=== PATIENT | female | born 1940 | race Caucasian/White ===

== ENCOUNTER → 2016-12-12 | Outpatient (CLI) | payer OTHER | LOC: FIMAGING 07:44 | PROVIDERS: ATTEND Family Medicine | DX: Z12.31 Encounter for screening mammogram for malignant neoplasm of breast (principal) | CPT/HCPCS: G0202 ==

== ENCOUNTER → 2017-12-13 | Outpatient (CLI) | payer OTHER | LOC: FIMAGING 07:47 | PROVIDERS: ATTEND Family Medicine | DX: Z12.31 Encounter for screening mammogram for malignant neoplasm of breast (principal) ==

== ENCOUNTER 2018-03-25 14:16 | Inpatient (IN) | payer OTHER ==
--- NOTE | 2018-03-25 14:36 | EDPHY ---
H & P Time Seen by Provider: 03/25/18 14:39 Constitutional: Initial Vital Signs Temperature (C) 37.0 C 03/25/18 14:37 Heart Rate 68 03/25/18 14:37 Respiratory Rate 16 03/25/18 14:37 Blood Pressure 180/77 H 03/25/18 14:37 O2 Sat (%) 91 L 03/25/18 14:37 O2 Delivery Mode Room Air Allergies/Adverse Reactions: latex Allergy (Verified 03/25/18 14:37) Home Medications: Medication Instructions Recorded Atorvastatin Calcium 03/25/18 Benazepril/Hydrochlorothiazide 03/25/18 Latanoprost 03/25/18 Medical Decision Making - Diagnostics Imaging Results: Imaging Impressions Abdomen Ultrasound 03/25/18 14:45 Impression: Cholelithiasis without evidence for cholecystitis. Results called and discussed with Cole Cunningham MD on March 25, 2018 at 1524 hours. Imaging: Discussed imaging studies w/ full service supervisor Radiologist, I viewed and interpreted images myself ED Course/Re-evaluation: CHIEF COMPLAINT: Left abdominal pain HISTORY OF PRESENT ILLNESS: The patient is a 77 y/o female with a history of appendectomy and hysterectomy complaining of left upper abdominal pain onset 12:30, 14 hours ago. For the last several years she has had several gallbladder attacks that improved on their own. She has been eating more dairy and fat the last two weeks, which has caused the left abdominal pain to increase. Last night after eating a large meal at [employer], she developed the acute left upper abdominal pain, which has not improved. Today the pain has also radiated to her left shoulder. She last ate food at 11:30, 3 hours ago, and drank water at 14:00, 45 minutes ago. Denies headache, chest pain, shortness of breath, urinary or bowel complaints, numbness, paresthesias, or fevers. REVIEW OF SYSTEMS: A comprehensive 10 system review of systems is otherwise negative aside from elements mentioned in the history of present illness and medical decision making. PHYSICAL EXAM: HR, BP, O2 Sat, RR. Temp noted General Appearance: Alert, well hydrated, appropriate, and non-toxic appearing. Head: Atraumatic without scalp tenderness or obvious injury Eyes: Pupils equal, round, reactive to light and accommodation, EOMI, no trauma , no injection. Ears: Clear bilaterally, no perforation, normal landmarks Nose: Atraumatic, no rhinorrhea, clear. Throat: There is no erythema or exudates, no lesions, normal tonsils, mucus membranes moist. Neck: Supple, 2+ carotid upstroke, nontender, no lymphadenopathy. Respiratory: No retractions, no distress, no wheezes, and no accessory muscle use. Lungs are clear to auscultation bilaterally. Cardiovascular: Regular rate and rhythm, no murmurs, rubs, or gallops. Bilateral carotid, radial, dorsalis pedis, and posterior tibial pulses intact. Good capillary refill all extremities. Gastrointestinal: Right upper quadrant tenderness with positive Espinoza's sign. Abdomen is soft, non-distended, no masses, no rebound, no guarding, no peritoneal signs. Musculoskeletal: Normal active ROM of all extremities, atraumatic. Neurological: Alert, appropriate, and interactive. The patient has normal DTRs and non-focal cranial nerves, motor, sensory, and cerebellar exam. Skin: No rashes, good turgor, no nodules on palpation. Past medical history: Gallbladder attacks Past surgical history: Appendectomy, hysterectomy Family history: Denies Social history: at bedside, lives in [place], retired DIAGNOSTICS/PROCEDURES/CRITICAL CARE TIME: Abdominal US: Numerous cholelithiasis without evidence of sonographic cholecystitis, choledocholithiasis or cholangitis. DIFFERENTIAL DIAGNOSIS: The differential diagnosis for the patient's abdominal pain included but was not limited to gallstone pancreatitis, cholelithiasis, ovarian cyst, pelvic inflammatory disease, ovarian torsion, urinary tract infection, ectopic , cholecystitis. MEDICAL DECISION MAKING: The patient is a 77 y/o female with a history of gallbladder attacks, an appendectomy, and hysterectomy presenting with left upper abdominal pain onset 12:30, 14 hours ago. On exam she has right upper quadrant tenderness with a positive Espinoza's sign. Labs and abdominal US ordered; 1L IV NS administered. 1522: Patient has an elevated lipase of 1322, this is indicative to gallstone pancreatitis. I spoke with Dr. Merida, radiologist, who reports that the patient has numerous cholelithiasis without evidence of sonographic cholecystitis, choledocholithiasis or cholangitis. 1525: Reassessed patient and discussed laboratory and imaging findings. Her pain has not improved, but is constant. She reports that she does not drink much alcohol. I have thoroughly discussed being admitted for observation, further evaluation, and a potential cholecystectomy, which she is comfortable with. 1538: I consulted with the hospitalist service, Dr. Felder accepts admission of this patient. 1543: I consulted with Dr. Carranza, mounter flutes and piccolos, regarding this patient. He agrees to consult on this patient during her admission. 1550: I consulted with Dr. King, general surgeon, regarding this patient. He agrees to consult on this patient during her admission for a possible cholecystectomy. - Data Points Laboratory Results: Laboratory Results 03/25/18 14:50 03/25/18 14:50 03/25/18 03/25/18 03/25/18 14:58 14:50 14:50 WBC RBC Hgb POC Hgb 14.3 gm/dL gm/dL (12.6-16.3) Hct POC Hct 42 % % (38-47) MCV MCH MCHC RDW Plt Count MPV Neut % (Auto) Lymph % (Auto) [place] % (Auto) Eos % (Auto) Baso % (Auto) Nucleat RBC Rel Count Absolute Neuts (auto) Absolute Lymphs (auto) Absolute Monos (auto) Absolute Eos (auto) Absolute Basos (auto) Absolute Nucleated RBC Immature Gran % Immature Gran # PT 13.8 SEC SEC (12.0-15.0) INR 1.04 (0.83-1.16) APTT 28.5 SEC SEC (23.0-38.0) POC Sodium 137 mEq/L mEq/L (135-145) Sodium 134 mEq/L L mEq/L (135-145) POC Potassium 3.7 mEq/L mEq/L (3.3-5.0) Potassium 4.1 mEq/L mEq/L (3.3-5.0) POC Chloride 100 mEq/L mEq/L (97-110) Chloride 101 mEq/L mEq/L (97-110) Carbon Dioxide 25 mEq/l mEq/l (22-31) Anion Gap 8 mEq/L mEq/L (8-16) POC BUN 22 mg/dL mg/dL (7-23) BUN 24 mg/dL H mg/dL (7-23) Creatinine 0.9 mg/dL mg/dL (0.6-1.0) POC Creatinine 1.1 mg/dL H mg/dL (0.6-1.0) Estimated GFR > 60 Glucose 98 mg/dL mg/dL (70-100) POC Glucose 100 mg/dL mg/dL (70-100) Calcium 9.3 mg/dL mg/dL (8.5-10.4) Total Bilirubin 0.7 mg/dL mg/dL (0.1-1.4) Conjugated Bilirubin 0.1 mg/dL mg/dL (0.0-0.5) Unconjugated Bilirubin 0.6 mg/dL mg/dL (0.0-1.1) AST 26 IU/L IU/L (14-46) ALT 32 IU/L IU/L (9-52) Alkaline Phosphatase 55 IU/L IU/L (38-126) Total Protein 6.2 g/dL L g/dL (6.3-8.2) Albumin 4.0 g/dL g/dL (3.5-5.0) Lipase 1332 IU/L H IU/L (23-300) 03/25/18 14:50 WBC 8.93 10^3/uL 10^3/uL (3.80-9.50) RBC 4.44 10^6/uL 10^6/uL (4.18-5.33) Hgb 14.1 g/dL g/dL (12.6-16.3) POC Hgb Hct 40.5 % % (38.0-47.0) POC Hct MCV 91.2 fL fL (81.5-99.8) MCH 31.8 pg pg (27.9-34.1) MCHC 34.8 g/dL g/dL (32.4-36.7) RDW 13.0 % % (11.5-15.2) Plt Count 236 10^3/uL 10^3/uL (150-400) MPV 10.2 fL fL (8.7-11.7) Neut % (Auto) 79.4 % H % (39.3-74.2) Lymph % (Auto) 12.0 % L % (15.0-45.0) [place] % (Auto) 8.0 % % (4.5-13.0) Eos % (Auto) 0.2 % L % (0.6-7.6) Baso % (Auto) 0.2 % L % (0.3-1.7) Nucleat RBC Rel Count 0.0 % % (0.0-0.2) Absolute Neuts (auto) 7.09 10^3/uL H 10^3/uL (1.70-6.50) Absolute Lymphs (auto) 1.07 10^3/uL 10^3/uL (1.00-3.00) Absolute Monos (auto) 0.71 10^3/uL 10^3/uL (0.30-0.80) Absolute Eos (auto) 0.02 10^3/uL L 10^3/uL (0.03-0.40) Absolute Basos (auto) 0.02 10^3/uL 10^3/uL (0.02-0.10) Absolute Nucleated RBC 0.00 10^3/uL 10^3/uL (0-0.01) Immature Gran % 0.2 % % (0.0-1.1) Immature Gran # 0.02 10^3/uL 10^3/uL (0.00-0.10) PT INR APTT POC Sodium Sodium POC Potassium Potassium POC Chloride Chloride Carbon Dioxide Anion Gap POC BUN BUN Creatinine POC Creatinine Estimated GFR Glucose POC Glucose Calcium Total Bilirubin Conjugated Bilirubin Unconjugated Bilirubin AST ALT Alkaline Phosphatase Total Protein Albumin Lipase Medications Given: Discontinued Medications Sodium Chloride (Ns) 1,000 mls @ 0 mls/hr IV EDNOW ONE; Wide Open PRN Reason: Protocol Stop: 03/25/18 14:46 Last Admin: 03/25/18 14:53 Dose: 1,000 mls Point of Care Test Results: Chemistry 03/25/18 14:58 POC Sodium 137 mEq/L mEq/L (135-145) POC Potassium 3.7 mEq/L mEq/L (3.3-5.0) POC Chloride 100 mEq/L mEq/L (97-110) POC BUN 22 mg/dL mg/dL (7-23) POC Creatinine 1.1 mg/dL H mg/dL (0.6-1.0) POC Glucose 100 mg/dL mg/dL (70-100) ISTAT H&H 03/25/18 14:58 POC Hgb 14.3 gm/dL gm/dL (12.6-16.3) POC Hct 42 % % (38-47) Departure - Departure Disposition: [facility] Acute Clinical Impression: Gallstones, Gallstone pancreatitis Condition: Fair Referrals: Talia Gonzáles MD [Primary Care Provider] - As per Instructions Report Scribed for: Cole Cunningham Report Scribed by: Adia Yanes Date of Report: 03/25/18 Time of Report: 14:39
[2018-03-25] MEDS ORDERED: NS 1,000 ML IV ONE (14:45)
[2018-03-25 15:15] LABS: PLATELET COUNT 236 10^3/uL (150-400)
[2018-03-25 15:29] LABS: INR 1.04 (0.83-1.16); PROTIME(PATIENT) 13.8 SEC (12.0-15.0)
[2018-03-25] MEDS ORDERED: ONDANSETRON 4 MG/2 ML VIAL IVP PRN (16:16)
[2018-03-25] MEDS ORDERED: oxyCODONE IR 5 MG TAB PO PRN (16:16)
[2018-03-25] MEDS ORDERED: ONDANSETRON DISINTEGRATING 4 MG TAB PO PRN (16:16)
--- NOTE | 2018-03-25 16:16 | ASMTCMCOM ---
CM Note CM Note Notes: Reviewed chart. Pt presented to the Emergency Department with complaints of left-sided abdominal pain. History includes "gallbladder attacks," an appendectomy, and hysterectomy. Pt is and lives with her spouse independently. Pt to be admitted for further evaluation and treatment of gallstones/gallstone pancreatitis. Discharge needs remain unclear at this time. Anticipate pt will likely return home independently when medically stable. CM will continue to follow for any potential needs. Discharge Plan: To be determined, likely independent w/ family support when stable Date Signed: 03/25/2018 04:16 PM Electronically Signed By:Keisha Coe RN
--- NOTE | 2018-03-25 16:32 | PDGENHP ---
History and Physical - Chief Complaint abdominal pain - History of Present Illness 77yo F with HTN, HLD presents with right upper quadrant abdominal pain. Started just after midnight, radiated to right shoulder and epigastric area. Associated with bilious vomiting and chills. Pain improved a bit after vomiting but has not completely abated. No fever or diarrhea. She has had several episodes similar to this over the past 15 years that have self-resolved; she noted these episodes after eating fatty foods. She did eat a bison burger for lunch and a pasta dish at [employer] last night. Minimal alcohol use. No recent med changes. No recent travel. In the ED, labs showed an elevated lipase and abdominal ultrasound showed significant cholelithiasis. She is being admitted for gallstone pancreatitis. Case discussed with ED physician Dr Cole Cunningham. History Information - Allergies/Home Medication List Allergies/Adverse Reactions: latex Allergy (Verified 03/25/18 14:37) Home Medications: Atorvastatin Calcium 03/25/18 [Last Taken Unknown] Benazepril/Hydrochlorothiazide 03/25/18 [Last Taken Unknown] Latanoprost 03/25/18 [Last Taken Unknown] I have personally reviewed and updated: family history, medical history, social history, surgical history - Past Medical History Additional medical history: HTN, HLD - Surgical History Additional surgical history: appendectomy, hyesterectomy - Family History Positive for: non-pertinent - Social History Smoking Status: Never smoked Alcohol Use: Rarely Drug Use: None Additional social history: lives with Review of Systems Review of Systems: ROS: 10pt was reviewed & negative except for what was stated in HPI & below Physical Exam Physical Exam: Temp Pulse Resp BP Pulse Ox 37.0 C 68 16 157/94 H 98 03/25/18 14:37 03/25/18 16:13 03/25/18 16:13 03/25/18 16:13 03/25/18 16:13 Constitutional: no apparent distress, appears nourished, not in pain Eyes: PERRL, anicteric sclera, EOMI Ears, Nose, Mouth, Throat: moist mucous membranes, hearing normal, ears appear normal, no oral mucosal ulcers Cardiovascular: regular rate and rhythym, no murmur, rub, or gallop, No edema Respiratory: no respiratory distress, no rales or rhonchi, clear to auscultation Gastrointestinal: normoactive bowel sounds, tenderness (RUQ), No hepatosplenomegally, No guarding, No rebound Skin: warm, normal color, no rashes or abrasions, no fluctuance, no induration, No mottled Musculoskeletal: full muscle strength, no muscle tenderness, normal joint ROM, no joint effusions Neurologic: AAOx3 Psychiatric: interacting appropriately, not anxious, not encephalopathic, thought process linear Lab Data & Imaging Review 03/25/18 14:50 03/25/18 14:50 WBC 8.93 10^3/uL (3.80-9.50) 03/25/18 14:50 RBC 4.44 10^6/uL (4.18-5.33) 03/25/18 14:50 Hgb 14.1 g/dL (12.6-16.3) 03/25/18 14:50 POC Hgb 14.3 gm/dL (12.6-16.3) 03/25/18 14:58 Hct 40.5 % (38.0-47.0) 03/25/18 14:50 POC Hct 42 % (38-47) 03/25/18 14:58 MCV 91.2 fL (81.5-99.8) 03/25/18 14:50 MCH 31.8 pg (27.9-34.1) 03/25/18 14:50 MCHC 34.8 g/dL (32.4-36.7) 03/25/18 14:50 RDW 13.0 % (11.5-15.2) 03/25/18 14:50 Plt Count 236 10^3/uL (150-400) 03/25/18 14:50 MPV 10.2 fL (8.7-11.7) 03/25/18 14:50 Neut % (Auto) 79.4 % (39.3-74.2) H 03/25/18 14:50 Lymph % (Auto) 12.0 % (15.0-45.0) L 03/25/18 14:50 [place] % (Auto) 8.0 % (4.5-13.0) 03/25/18 14:50 Eos % (Auto) 0.2 % (0.6-7.6) L 03/25/18 14:50 Baso % (Auto) 0.2 % (0.3-1.7) L 03/25/18 14:50 Nucleat RBC Rel Count 0.0 % (0.0-0.2) 03/25/18 14:50 Absolute Neuts (auto) 7.09 10^3/uL (1.70-6.50) H 03/25/18 14:50 Absolute Lymphs (auto) 1.07 10^3/uL (1.00-3.00) 03/25/18 14:50 Absolute Monos (auto) 0.71 10^3/uL (0.30-0.80) 03/25/18 14:50 Absolute Eos (auto) 0.02 10^3/uL (0.03-0.40) L 03/25/18 14:50 Absolute Basos (auto) 0.02 10^3/uL (0.02-0.10) 03/25/18 14:50 Absolute Nucleated RBC 0.00 10^3/uL (0-0.01) 03/25/18 14:50 Immature Gran % 0.2 % (0.0-1.1) 03/25/18 14:50 Immature Gran # 0.02 10^3/uL (0.00-0.10) 03/25/18 14:50 PT 13.8 SEC (12.0-15.0) 03/25/18 14:50 INR 1.04 (0.83-1.16) 03/25/18 14:50 APTT 28.5 SEC (23.0-38.0) 03/25/18 14:50 POC Sodium 137 mEq/L (135-145) 03/25/18 14:58 Sodium 134 mEq/L (135-145) L 03/25/18 14:50 POC Potassium 3.7 mEq/L (3.3-5.0) 03/25/18 14:58 Potassium 4.1 mEq/L (3.3-5.0) 03/25/18 14:50 POC Chloride 100 mEq/L (97-110) 03/25/18 14:58 Chloride 101 mEq/L (97-110) 03/25/18 14:50 Carbon Dioxide 25 mEq/l (22-31) 03/25/18 14:50 Anion Gap 8 mEq/L (8-16) 03/25/18 14:50 POC BUN 22 mg/dL (7-23) 03/25/18 14:58 BUN 24 mg/dL (7-23) H 03/25/18 14:50 Creatinine 0.9 mg/dL (0.6-1.0) 03/25/18 14:50 POC Creatinine 1.1 mg/dL (0.6-1.0) H 03/25/18 14:58 Estimated GFR > 60 03/25/18 14:50 Glucose 98 mg/dL (70-100) 03/25/18 14:50 POC Glucose 100 mg/dL (70-100) 03/25/18 14:58 Calcium 9.3 mg/dL (8.5-10.4) 03/25/18 14:50 Total Bilirubin 0.7 mg/dL (0.1-1.4) 03/25/18 14:50 Conjugated Bilirubin 0.1 mg/dL (0.0-0.5) 03/25/18 14:50 Unconjugated Bilirubin 0.6 mg/dL (0.0-1.1) 03/25/18 14:50 AST 26 IU/L (14-46) 03/25/18 14:50 ALT 32 IU/L (9-52) 03/25/18 14:50 Alkaline Phosphatase 55 IU/L (38-126) 03/25/18 14:50 Total Protein 6.2 g/dL (6.3-8.2) L 03/25/18 14:50 Albumin 4.0 g/dL (3.5-5.0) 03/25/18 14:50 Lipase 1332 IU/L (23-300) H 03/25/18 14:50 Visualized and Interpreted imaging results: Yes Interpretation: Abdominal US: cholelithiasis without cholecystitis, no intra or extrahepatic biliary ductal dilatation Assessment & Plan Assessment: 7yo F with HTN, HLD presents with right upper quadrant abdominal pain being admitted for gallstone pancreatitis. Plan: #Gallstone pancreatitis: No e/o cholangitis or cholecystitis clinically or on labs or imaging. Gallstone appears to have passed as not visualized on imaging; however has multiple gallstones in gallbladder. This is a recurrent issue and gallbladder removal is recommended. - Pain, nausea management - ED consulted surgery and GI - NPO at midnight - Antibiotics not indicated at present #HTN: - Continue home meds VTE ppx: SCDs Code: full Dispo: Admit under observation for management of above.
[2018-03-25] MEDS: NS 1,000 ML IV SCH (17:54)
[2018-03-25] MEDS: ACETAMINOPHEN 325 MG TAB PO PRN (18:02)
--- NOTE | 2018-03-25 20:17 | SOAPPROG ---
SOHARSHA Progress Note Assessment/Plan: Assessment: PT WITH GALLSTONE PANCREATITIS AND MULTIPLE STONES/ LIPASE 1300 LFTs OK Plan:WILL EVAL IN AM FOR LAP MORALES WHEN LIPASE IMPROVED 03/25/18 20:15 Objective: Vital Signs Temp Pulse Resp BP Pulse Ox 37.0 C 61 16 143/60 H 90 L 03/25/18 14:37 03/25/18 19:52 03/25/18 19:52 03/25/18 19:52 03/25/18 19:52 PT 13.8 SEC (12.0-15.0) 03/25/18 14:50 INR 1.04 (0.83-1.16) 03/25/18 14:50 ICD10 Worksheet Patient Problems: Problems Problem Status Onset Gallstone pancreatitis Acute Gallstones Acute
[2018-03-25] MEDS: LATANOPROST 0.005% 2.5 ML OPHT DROPS EACHEYE SCH (20:21)
[2018-03-26] MEDS: NS 1,000 ML IV SCH ×2 (02:39→18:26)
[2018-03-26 04:47] LABS: PLATELET COUNT 168 10^3/uL (150-400)
[2018-03-26] MEDS ORDERED: BENAZEPRIL HCL 10 MG TAB PO SCH (09:00)
--- NOTE | 2018-03-26 10:04 | SOAPPROG ---
JOSE ELIAS Progress Note Assessment/Plan: Assessment: 77 y/o F admitted with RUQ pain, found to have cholelithiasis. Elevated lipase was 1300 yesterday, down to 130 this am. S: No complaints. O: Alert Afebrile RRR No increased WOB Abdomen soft, slightly ttp in RUQ, normoactive BS Plan: OR today for lap perry. Options and risks discussed. Pt agrees with plan. 03/26/18 09:51 Objective: Vital Signs Temp Pulse Resp BP Pulse Ox 37.7 C 70 16 166/69 H 90 L 03/26/18 08:53 03/26/18 08:53 03/26/18 08:53 03/26/18 08:53 03/26/18 08:53 Laboratory Results 03/26/18 04:16 03/26/18 04:16 03/25/18 03/26/18 03/27/18 05:59 05:59 05:59 Intake Total 1715 Balance 1715 PT 13.8 SEC (12.0-15.0) 03/25/18 14:50 INR 1.04 (0.83-1.16) 03/25/18 14:50 ICD10 Worksheet Patient Problems: Problems Problem Status Onset Gallstone pancreatitis Acute Gallstones Acute
--- NOTE | 2018-03-26 10:06 | ASMTCMCOM ---
CM Note CM Note Notes: Patient chart reviewed. Likely to have laparoscopic surgery for cholystectomy with Dr. King at some point. CM to follow for needs. Plan: May likely dc to home independently when medical cleared for discharge. Date Signed: 03/26/2018 10:06 AM Electronically Signed By:Kenzie Montelongo RN
[2018-03-26] MEDS ORDERED: cefOXitin SODIUM 2 GM in NS 100 ML IV ONE (11:30)
[2018-03-26] MEDS ORDERED: MIDAZOLAM 2 MG/2 ML VIAL IVP ONE (12:17)
--- NOTE | 2018-03-26 12:17 | PDANEPAE ---
ANE History of Present Illness Lap Jennifer ANE Past Medical History - Cardiovascular History Hx Hypertension: Yes Hx Arrhythmias: Yes - Pulmonary History Hx Oxygen in Use at Home: No Hx Sleep Apnea: No Sleep Apnea Screening Result - Last Documented: Positive - Endocrine History Hx Diabetes: No - Chronic Pain History Chronic Pain: No ANE Review of Systems Review of Systems: - Exercise capacity Exercise capacity: >=4 METS ANE Patient History - Allergies Allergies/Adverse Reactions: latex Allergy (Verified 03/25/18 14:37) - Home Medications Home Medications: Aspirin EC [Aspirin EC 81 mg (*)] 81 mg PO DAILY 03/25/18 [Last Taken 03/24/18] Atorvastatin Calcium [Lipitor 10 mg (*)] 10 mg PO MOWEFR@2100 03/25/18 [Last Taken 03/23/18 22:00] Benazepril/Hydrochlorothiazide [Lotensin Hct 10-12.5 mg Tablet] 1 each PO DAILY 03/25/18 [Last Taken 03/24/18 08:00] Calcium Carbonate [Calcium] 1,500 mg PO DAILY 03/25/18 [Last Taken 03/24/18] Ergocalciferol (Vitamin D2) [Vitamin D2] 800 unit PO DAILY 03/25/18 [Last Taken 03/24/18] Herbals/Supplements -Info Only 1 ea PO DAILY 03/25/18 [Last Taken 03/24/18] Latanoprost/Pf [Latanoprost 0.005% Eye Drop] 1 drop OP HS 03/25/18 [Last Taken 03/24/18 22:00] Multivitamins [Multivitamin (*)] 1 each PO DAILY 03/25/18 [Last Taken 03/24/18] - NPO status NPO Since - Liquids (Date): 03/26/18 NPO Since - Liquids (Time): 00:01 NPO Since - Solids (Date): 03/26/18 NPO Since - Solids (Time): 00:01 - Smoking Hx Smoking Status: Never smoked - Alcohol Use Alcohol Use: Rarely ANE Labs/Vital Signs - Labs Result Diagrams: 03/26/18 04:16 03/26/18 04:16 - Vital Signs Blood Pressure: 122/67 Heart Rate: 64 Respiratory Rate: 16 O2 Sat (%): 96 Height: 154.94 cm Weight: 73.7 kg ANE Physical Exam - Airway Neck exam: FROM Mallampati Score: Class 2 Mouth exam: normal dental/mouth exam - Pulmonary Pulmonary: clear to auscultation - Cardiovascular Cardiovascular: regular rate and rhythym - ASA Status ASA Status: II ANE Anesthesia Plan Anesthesia Plan: general endotracheal anesthesia
[2018-03-26] MEDS ORDERED: fentaNYL 250 MCG/5 ML INJ ONE (12:29)
[2018-03-26] MEDS ORDERED: ROCURONIUM 50 MG/5 ML VIAL ONE (12:29)
[2018-03-26] MEDS ORDERED: PROPOFOL 200 MG/20 ML VIAL ONE (12:29)
[2018-03-26] MEDS ORDERED: IOTHALAMATE MEG (CONRAY) 50 ML VIAL IV ONE (12:35)
[2018-03-26] MEDS ORDERED: BUPIVACAINE 0.5% 30 ML SDV ONE (12:35)
[2018-03-26] MEDS ORDERED: ceFAZolin 1 GM/5 ML SYR ONE (12:36)
[2018-03-26] MEDS ORDERED: HEPARIN 1000 UNIT/1 ML MDV ONE (12:36)
[2018-03-26] MEDS ORDERED: ePHEDrine SULFATE 25 MG/5 ML SYR ONE (12:48)
[2018-03-26] MEDS ORDERED: SUGAMMADEX SODIUM 200 MG/2 ML VIAL IVP ONE (13:40)
--- NOTE | 2018-03-26 13:51 | POSTANESTH ---
Post Anesthetic Evaluation Cardiovascular Status: Normal, Stable Respiratory Status: Normal, Stable Level of Consciousness/Mental Status: Can Participate in Eval, Mildly Sleepy, Arousable Pain Control: Adequate, Prn Tx Ordered Nausea/Vomiting Control: Adequate, Prn Tx Ordered Complications Possibly Related to Anesthesia: None Noted
[2018-03-26] MEDS ORDERED: ONDANSETRON 4 MG/2 ML VIAL IVP PRN (14:05)
[2018-03-26] MEDS ORDERED: DEXAMETHASONE 4 MG/ML VIAL IVP PRN (14:05)
[2018-03-26] MEDS ORDERED: NALOXONE HCL 0.4 MG/ML INJ IVP PRN (14:05)
[2018-03-26] MEDS ORDERED: HYDROmorphONE/DILAUDID 2 MG/ML INJ IVP PRN (14:05)
[2018-03-26] MEDS ORDERED: HYDROCODONE/APAP 5/325 TAB PO PRN (14:05)
[2018-03-26] MEDS ORDERED: ACETAMINOPHEN 500 MG TAB PO PRN (14:05)
[2018-03-26] MEDS ORDERED: oxyCODONE IR 5 MG TAB PO PRN (14:05)
[2018-03-26] MEDS ORDERED: ALBUTEROL 3 ML DEYVIAL IH PRN (14:05)
[2018-03-26] MEDS ORDERED: fentaNYL 100 MCG/2 ML INJ IVP PRN (14:05)
[2018-03-26] MEDS ORDERED: ACETAMINOPHEN 500 MG TAB ONE (14:29)
--- NOTE | 2018-03-26 14:40 | POSTOPPROG ---
Post Op Note Date of Operation: 03/26/18 Surgeon: Rob King Admissions Manager Rn: Yasmeen Ramos Anesthesiologist: Dami Moreno Anesthesia: GET(General Endotracheal) Pre-op Diagnosis: cholelithiasis, elevated LFTs Post-op Diagnosis: same, and choledocholithiasis Procedure: lap perry c IOC Findings: filling defect on IOC, necrotic gallbladder Inf/Abcess present in the surg proc area at time of surgery?: Yes Depth: Organ Space EBL: 50-100 Complications: none Specimen(s): gallbladder to pathology
[2018-03-26] MEDS: BENAZEPRIL HCL 10 MG TAB PO SCH (17:02)
[2018-03-26] MEDS: CALCIUM CARBONATE 500 MG TAB PO SCH (17:02)
[2018-03-26] MEDS: HYDROCHLOROTHIAZIDE 12.5 MG CAP PO SCH (17:03)
--- NOTE | 2018-03-26 17:12 | GCON ---
GASTROENTEROLOGY CONSULTATION DATE OF CONSULTATION: 03/26/2018 REFERRING PHYSICIAN: Rob King MD REASON FOR CONSULTATION: Choledocholithiasis. HISTORY OF PRESENT ILLNESS: The patient is a 77-year-old female who has a hyperlipidemia and essential hypertension who was admitted to the hospital last night with acute onset of right upper quadrant abdominal pain radiating into the epigastrium and right shoulder, associated with an episode of nausea, vomiting, and chills. She was found in the emergency room to have an elevated lipase of 1332 and a gallbladder distended with multiple gallstones. The common bile duct appeared normal. The white count was normal. Patient went to laparoscopic cholecystectomy today, which was performed by Dr. King who found a necrotic gallbladder. Cholecystectomy was performed. Intraoperative cholangiogram revealed a small retained stone in the common bile duct. I was asked to see the patient for consideration of ERCP, papillotomy and removal of stone. The patient is postoperative, is alert, has no complaints of pain at the present time. She is n.p.o. MEDICATIONS: Prior to admission: Atorvastatin 1 daily, benazepril/ hydrochlorothiazide once daily, Latanoprost once daily. ALLERGIES: No known drug allergies. She is allergic to latex. PAST MEDICAL HISTORY: Significant for hyperlipidemia and hypertension, personal history of colon polyps. PAST SURGICAL HISTORY: Significant for appendectomy and total abdominal hysterectomy. Last colonoscopy 4 years ago. FAMILY HISTORY: Negative for GI malignancies or gallbladder disease. SOCIAL HISTORY: She is and retired. Her and her live in [place]. She does not drink significant quantities of alcohol. Denies any tobacco use or illicit drug use. She denies any significant NSAID use. REVIEW OF SYSTEMS: Other than the known in the HPI were negative for comprehensive review of systems on my examination today. PHYSICAL EXAMINATION: GENERAL: Well-developed well-nourished female lying in bed in no apparent distress. VITAL SIGNS: Temperature was 37 Celsius, pulse is 63 regular, blood pressure 132/70, respiratory rate 16, O2 saturation 97% on 3 L per nasal cannula. INTEGUMENT: Clear. HEENT: Head atraumatic, normocephalic. Pupils equal, round, reactive to light. EOMs intact. Sclerae nonicteric. Nares patent. Mucous membranes moist. Dentition good. NECK: Supple. Trachea midline. LYMPHATICS: No cervical or axillary adenopathy identified or palpated. PULMONARY: Lungs were clear to percussion and auscultation. CARDIOVASCULAR: Regular rhythm, rate. Normal S1, S2, without murmur. Peripheral pulses strong bilaterally. No pedal edema. GASTROINTESTINAL: Abdomen slightly distended. Positive bowel sounds. Clean trocar incision sites noted. No liver or spleen tip palpable. No fluid wave noted. EXTREMITIES: Without deformities. NEURO: Patient was alert, oriented x3. No focal neurologic deficits. LABORATORY/IMAGING: White count 6.8, hemoglobin 12.4, hematocrit 36.3, platelets 168,000. Pro time 13.8, INR 1.04, PTT 28.5. Electrolytes normal. Anion gap 6, BUN 17, creatinine 1.0. LFTs normal on admission. Lipase on admission 1332, lipase preoperative this morning 130. Abdominal ultrasound as noted in HPI. IMPRESSION: 1. Acute cholecystitis/choledocholithiasis, status post laparoscopic cholecystectomy with retained common bile duct stone noted on intraoperative cholangiogram. 2. Gallstone pancreatitis, clinically resolved. 3. Essential hypertension. 4. Personal history of colon polyps, due for follow-up colonoscopy in one year. RECOMMENDATIONS: I had a lengthy discussion with the patient and her of the pros and cons of ERCP, papillotomy and removal of common bile duct stone. Also reviewed the risks of post ERCP pancreatitis at 2%-3% versus the risk of gallstone pancreatitis if intervention is not performed. She and her are agreeable with proceeding with ERCP tomorrow. Plan is therefore to do ERCP at 9 o'clock tomorrow a.m., patient can have clear liquids and a smoothie tonight with n.p.o. after midnight. /[id number]/MODL MTDD
--- NOTE | 2018-03-26 17:47 | HOSPPROG ---
Hospitalist Progress Note Assessment/Plan: * Acute cholecystitis - necrotic gallbladder found during OR -IV Cefoxitin * Retained CBD stone -ERCP in am * Gallstone pancreatitis -lipase normalized -advance diet post ERCP * HTN -benazepril/HCTZ Subjective: Some pain from abdominal distention post op Objective: Vital Signs Temp Pulse Resp BP Pulse Ox 37.0 C 70 16 123/64 H 96 03/26/18 15:13 03/26/18 17:03 03/26/18 17:03 03/26/18 17:03 03/26/18 17:03 Laboratory Results 03/26/18 04:16 03/26/18 04:16 03/25/18 03/26/18 03/27/18 05:59 05:59 05:59 Intake Total 1715 620 Output Total 10 Balance 1715 610 PT 13.8 SEC (12.0-15.0) 03/25/18 14:50 INR 1.04 (0.83-1.16) 03/25/18 14:[address] King and Dr. Carranza abd US - positive for gallstones - Physical Exam Constitutional: no apparent distress, appears nourished, not in pain Cardiovascular: regular rate and rhythym, no murmur, rub, or gallop Respiratory: no respiratory distress, no rales or rhonchi, clear to auscultation Gastrointestinal: normoactive bowel sounds, no palpable masses, tenderness (RUQ) Skin: no rashes or abrasions, no fluctuance, no induration Neurologic: AAOx3, sensation intact bilaterally Psychiatric: interacting appropriately, not anxious, not encephalopathic, thought process linear ICD10 Worksheet Patient Problems: Problems Problem Status Onset Gallstones Acute Gallstone pancreatitis Acute
[2018-03-26] MEDS: cefOXitin SODIUM 1 GM in NS 50 ML IV SCH ×2 (18:26→23:53)
[2018-03-26] MEDS: ACETAMINOPHEN 325 MG TAB PO PRN (20:53)
[2018-03-26] MEDS: ATORVASTATIN CALCIUM 10 MG TAB PO SCH (20:53)
[2018-03-26] MEDS: LATANOPROST 0.005% 2.5 ML OPHT DROPS EACHEYE SCH (20:53)
[2018-03-27] MEDS: ACETAMINOPHEN 325 MG TAB PO PRN (02:46)
[2018-03-27 04:29] LABS: PLATELET COUNT 139 10^3/uL (150-400)
[2018-03-27] MEDS: cefOXitin SODIUM 1 GM in NS 50 ML IV SCH ×4 (04:54→23:32)
[2018-03-27] MEDS ORDERED: IOTHALAMATE MEG (CONRAY) 50 ML VIAL IV ONE (08:24)
[2018-03-27] MEDS ORDERED: GLUCAGON HCL 1 MG VIAL ONE (08:24)
[2018-03-27] MEDS ORDERED: LR 1,000 ML IV ONE (08:25)
[2018-03-27] MEDS ORDERED: MIDAZOLAM 2 MG/2 ML VIAL IVP ONE (08:53)
--- NOTE | 2018-03-27 08:53 | PDANEPAE ---
ANE History of Present Illness ERCP ANE Past Medical History - Cardiovascular History Hx Hypertension: Yes Hx Arrhythmias: Yes Hx Chest Pain: No Hx Coronary Artery / Peripheral Vascular Disease: No Hx CHF / Valvular Disease: No Hx Palpitations: No - Pulmonary History Hx COPD: No Hx Asthma/Reactive Airway Disease: No Hx Recent Upper Respiratory Infection: No Hx Oxygen in Use at Home: No Hx Sleep Apnea: No Sleep Apnea Screening Result - Last Documented: Positive - Endocrine History Hx Diabetes: No - Chronic Pain History Chronic Pain: No ANE Review of Systems Review of Systems: - Exercise capacity METS (RN): 4 METS ANE Patient History - Allergies Allergies/Adverse Reactions: latex Allergy (Verified 03/25/18 14:37) - Home Medications Home medications: home medication list seen and reviewed Home Medications: Aspirin EC [Aspirin EC 81 mg (*)] 81 mg PO DAILY 03/25/18 [Last Taken 03/24/18] Atorvastatin Calcium [Lipitor 10 mg (*)] 10 mg PO MOWEFR@2100 03/25/18 [Last Taken 03/23/18 22:00] Benazepril/Hydrochlorothiazide [Lotensin Hct 10-12.5 mg Tablet] 1 each PO DAILY 03/25/18 [Last Taken 03/24/18 08:00] Calcium Carbonate [Calcium] 1,500 mg PO DAILY 03/25/18 [Last Taken 03/24/18] Ergocalciferol (Vitamin D2) [Vitamin D2] 800 unit PO DAILY 03/25/18 [Last Taken 03/24/18] Herbals/Supplements -Info Only 1 ea PO DAILY 03/25/18 [Last Taken 03/24/18] Latanoprost/Pf [Latanoprost 0.005% Eye Drop] 1 drop OP HS 03/25/18 [Last Taken 03/24/18 22:00] Multivitamins [Multivitamin (*)] 1 each PO DAILY 03/25/18 [Last Taken 03/24/18] - NPO status NPO Status: no food or drink >8 hours NPO Since - Liquids (Date): 03/27/18 NPO Since - Liquids (Time): 00:00 NPO Since - Solids (Date): 03/27/18 NPO Since - Solids (Time): 00:00 - Anes Hx Anes Hx: no prior problems - Smoking Hx Smoking Status: Never smoked - Alcohol Use Alcohol Use: Rarely - Family Anes Hx Family Anes Hx: none ANE Labs/Vital Signs - Labs Result Diagrams: 03/27/18 04:06 03/27/18 04:06 - Vital Signs Blood Pressure: 132/68 Heart Rate: 73 Respiratory Rate: 18 O2 Sat (%): 96 Height: 154.94 cm Weight: 73.7 kg ANE Physical Exam - Airway Neck exam: decreased ROM Mallampati Score: Class 2 Mouth exam: normal dental/mouth exam - Pulmonary Pulmonary: no respiratory distress, no rales or rhonchi - Cardiovascular Cardiovascular: regular rate and rhythym, no murmur, rub, or gallop - ASA Status ASA Status: II ANE Anesthesia Plan Anesthesia Plan: general endotracheal anesthesia
[2018-03-27] MEDS ORDERED: MIDAZOLAM 2 MG/2 ML VIAL ONE (08:58)
[2018-03-27] MEDS ORDERED: fentaNYL 100 MCG/2 ML INJ ONE ×2 (08:58)
[2018-03-27] MEDS ORDERED: PROPOFOL/EMULSION 500 MG/50 ML BOTTLE IV ONE (08:58)
[2018-03-27] MEDS ORDERED: ROCURONIUM 50 MG/5 ML VIAL ONE (08:59)
[2018-03-27] MEDS ORDERED: ONDANSETRON 4 MG/2 ML VIAL ONE (08:59)
[2018-03-27] MEDS ORDERED: GLYCOPYRROLATE 0.2 MG/1 ML VIAL ONE ×4 (08:59→10:36)
--- NOTE | 2018-03-27 09:47 | PDMN ---
Medical Necessity Medical necessity: Change to inpt as of 03/26/18 @ 1451. Pt meets inpt criteria pr MD order and [facility] [place] S-365, Cholecystectomy by Laparoscopy, extended/inpt stay for findings in 77 y/o pt (admitted w/acute cholecystitis and gallstone pancreatitis) who underwent lap perry surgery. Findings include necrotic gall bladder and retained stone in common bile duct revealed by intraoperative cholangiogram requiring further intervention, pt to have ERCP today. IV ABX's, IVF, following labs, pain management. Anticipate>2MN for ongoing med nec eval/ management of above.
[2018-03-27] MEDS ORDERED: NEOSTIGMINE METHYLSULFATE 5 MG/5 ML SYR ONE (10:36)
[2018-03-27] MEDS ORDERED: NALOXONE HCL 0.4 MG/ML INJ IVP PRN (10:49)
[2018-03-27] MEDS ORDERED: ALBUTEROL 3 ML DEYVIAL IH PRN (10:49)
[2018-03-27] MEDS ORDERED: HYDROmorphONE/DILAUDID 2 MG/ML INJ IVP PRN (10:49)
[2018-03-27] MEDS ORDERED: fentaNYL 100 MCG/2 ML INJ IVP PRN (10:49)
[2018-03-27] MEDS ORDERED: ONDANSETRON 4 MG/2 ML VIAL IVP PRN (10:49)
--- NOTE | 2018-03-27 10:51 | GIREPORT ---
[facility] - Endoscopy Department Patient Name: Fabby Carrillo Procedure Date: 03/27/2018 8:30 AM Patient Type: Inpatient Attending MD/ ER Physician: Roberto Carranza MD Procedure: ERCP Indications: Common bile duct stone(s) Providers: Roberto Carranza MD Medicines: Propofol per Anesthesia, Indomethacin 100 mg MI Complications: No immediate complications. Description of Procedure: After obtaining informed consent, the scope was passed under direct vis ion. Throughout the procedure, the patient's blood pressure, pulse, and oxyg en saturations were monitored continuously. The Duodenalscope was introduc ed through the mouth, and advanced to the duodenum and used to inject cont rast into the bile duct and dorsal pancreatic duct. The ERCP was somewhat difficult due to challenging cannulation because of papillary stenosis. The patient tolerated the procedure well. The total duration of the procedu re was 1 hour 5 minutes. Findings: The scope was advanced to a normal major papilla in the descending duod enum. Examination of the pharynx, larynx and associated structures, and upper GI tract was normal. The minor papilla was not seen. The major papilla was normal. Initial canulation and injection of 4 cc of contrast revealed n ormal distal pancreatic duct.The bile duct was deeply cannulated with the Hydratome sphincterotome. 10 cc of contrast was injected into the CBD. (I personally interpreted the bile duct images without the assistance o f Radiologist). There was brisk flow of contrast through the bile ducts. Image quality was excellent. Contrast extended to the main bile duct. Contrast extended t o the hepatic ducts. Opacification of the main bile duct was successful. The maximum diameter of the ducts was 10 mm. The lower third of the main bi le duct contained one stone, which was 5 mm in diameter. Sludge was also present. A 9 mm biliary sphincterotomy was made with a braided Hydratom e sphincterotome using ERBE electrocautery. There was no post-sphincterot zane bleeding. The biliary tree was otherwise normal. The biliary tree was s wept x 3 with a 9 mm balloon starting at the upper third of the main bile du ct, middle third of the main bile duct and lower third of the main duct. Sl udge was swept from the duct and stones were removed. Estimated Blood Loss: Estimated blood loss: none. Post Op Diagnosis: - Minor papilla not seen. - The major papilla appeared normal albeit stenosis noted on canulation - Choledocholithiasis and sludge was found. - A 9 mm biliary sphincterotomy was performed. - The biliary tree was swept and stone/sludge removed completely. - Normal appearing distal pancreatic duct on initial injection of minim al amount of contrast. Recommendation: - Return patient to hospital [facility] for ongoing care. - Clear liquid diet today. - Check lipase and liver enzymes (AST, ALT, alkaline phosphatase, bilir ubin) in the morning. - The findings and recommendations were discussed with the patient and . Attending Participation: I personally performed the entire procedure. Roberto Carranza MD Roberto Carranza MD 03/27/2018 10:50:31 AM This report has been signed electronicallyRoberto Carranza MD Number of Addenda: 0 Note Initiated On: 03/27/2018 8:30 AM [email or web address]
--- NOTE | 2018-03-27 10:51 | SOAPPROG ---
JOSE ELIAS Progress Note Assessment/Plan: Assessment/Plan: 77 Y F acute cholecystitis, cholelithiasis, choledocholithiasis , s/p lap perry POD#1. Seen with Dr. King this am while in pre op getting ready for ERCP. Appreciate GI and hospitalist input and care. 03/27/18 10:47 Objective: Vital Signs Temp Pulse Resp BP Pulse Ox 36.7 C 73 18 132/68 H 96 03/27/18 08:18 03/27/18 08:53 03/27/18 08:53 03/27/18 08:53 03/27/18 08:53 Laboratory Results 03/27/18 04:06 03/27/18 04:06 03/26/18 03/27/18 03/28/18 05:59 05:59 05:59 Intake Total 750 1506 Balance 750 1506 PT 13.8 SEC (12.0-15.0) 03/25/18 14:50 INR 1.04 (0.83-1.16) 03/25/18 14:50 ICD10 Worksheet Patient Problems: Problems Problem Status Onset Gallstone pancreatitis Acute Gallstones Acute
[2018-03-27] MEDS ORDERED: INDOMETHACIN 50 MG SUPP PR ONE (11:00)
[2018-03-27] MEDS: BENAZEPRIL HCL 10 MG TAB PO SCH (12:11)
[2018-03-27] MEDS: CALCIUM CARBONATE 500 MG TAB PO SCH (12:12)
[2018-03-27] MEDS: HYDROCHLOROTHIAZIDE 12.5 MG CAP PO SCH (12:12)
--- NOTE | 2018-03-27 16:05 | ASMTCMCOM ---
CM Note CM Note Notes: Chart reviewed. Patient s/p lap cholecystectomy and ERCP. Normally independent, CM to follow for needs. Plan: Likely dc independent when medically cleared fpr discharge. Date Signed: 03/27/2018 04:04 PM Electronically Signed By:Kenzie Montelongo RN
--- NOTE | 2018-03-27 16:22 | HOSPPROG ---
Hospitalist Progress Note Assessment/Plan: * Acute cholecystitis - necrotic gallbladder found during OR -IV Cefoxitin * Retained CBD stone -s/p ERCP with stones/sludge -d/w Dr. Carranza - difficult procedure due to scarring from previous passed stones -this puts her at higher risk for post ERCP pancreatitis -recommend further inpatient monitoring overnight, but okay to advance diet if doing well * Gallstone pancreatitis -lipase normalized pre-perry * HTN -benazepril/HCTZ as BP tolerates Subjective: Doing well post-procedure, still somnolent when I am seeing her, but arouses to answer appropriately to questions. Her Luther at bedside. Objective: Vital Signs Temp Pulse Resp BP Pulse Ox 36.4 C 54 L 18 139/69 H 94 03/27/18 15:33 03/27/18 15:33 03/27/18 15:33 03/27/18 15:33 03/27/18 15:33 Laboratory Results 03/27/18 04:06 03/27/18 04:06 03/26/18 03/27/18 03/28/18 05:59 05:59 05:59 Intake Total 750 2286 Output Total 0 Balance 750 2286 PT 13.8 SEC (12.0-15.0) 03/25/18 14:50 INR 1.04 (0.83-1.16) 03/25/18 14:50 - Time Spent With Patient Time Spent with Patient: greater than 35 minutes (extended time spent explaining ERCP and pancreatitis risk and signs/symptoms) Time Spent with Patient: Greater than 35 minutes spent on this patients care, greater than 50% of time spent counseling, educating, and coordinating care regarding the above mentioned plan. - Physical Exam Constitutional: no apparent distress Respiratory: no respiratory distress Neurologic: AAOx3 Psychiatric: interacting appropriately, No encephalopathic, No agitated ICD10 Worksheet Patient Problems: Problems Problem Status Onset Gallstones Acute Gallstone pancreatitis Acute
[2018-03-27] MEDS: NS 1,000 ML IV SCH (16:58)
[2018-03-27] MEDS: LATANOPROST 0.005% 2.5 ML OPHT DROPS EACHEYE SCH (20:16)
[2018-03-28] MEDS: ACETAMINOPHEN 325 MG TAB PO PRN (04:35)
[2018-03-28 04:51] LABS: PLATELET COUNT 173 10^3/uL (150-400)
[2018-03-28] MEDS: cefOXitin SODIUM 1 GM in NS 50 ML IV SCH ×4 (05:58→23:46)
--- NOTE | 2018-03-28 09:10 | HOSPPROG ---
Hospitalist Progress Note Assessment/Plan: # elevated LFTs - new after a complicated ERCP yesterday - Dr Carranza feels ongoing obstructive stone unlikely given the size of his sphincterotomy and doubtful that there was bile duct injury - will monitor today, recheck labs tomorrow and consider MRCP or ERCP if continue to rise # acute cholecystitis s/p resection of necrotic GB - cefoxitin # gallstone pancreatitis - resolved # htn - hold home meds today Subjective: patient reports dark urine and dana colored stools Objective: Vital Signs Temp Pulse Resp BP Pulse Ox 37.0 C 78 18 128/74 H 93 03/28/18 07:56 03/28/18 07:56 03/28/18 07:56 03/28/18 07:56 03/28/18 07:56 Laboratory Results 03/28/18 04:26 03/28/18 04:26 03/27/18 03/28/18 03/29/18 05:59 05:59 05:59 Intake Total 750 5586 Output Total 850 Balance 750 4736 PT 13.8 SEC (12.0-15.0) 03/25/18 14:50 INR 1.04 (0.83-1.16) 03/25/18 14:[address] abd reviewed discussed with Dr Carranza - Physical Exam Constitutional: no apparent distress Eyes: icteric sclera (mild) Ears, Nose, Mouth, Throat: hearing normal Cardiovascular: regular rate and rhythym, no murmur, rub, or gallop Respiratory: no respiratory distress, no rales or rhonchi, reduced air movement Gastrointestinal: no palpable masses, other (mild R sided abd pain), No guarding , No rebound, No distension ICD10 Worksheet Patient Problems: Problems Problem Status Onset Gallstones Acute Gallstone pancreatitis Acute
[2018-03-28] MEDS: BENAZEPRIL HCL 10 MG TAB PO SCH (09:15)
[2018-03-28] MEDS: HYDROCHLOROTHIAZIDE 12.5 MG CAP PO SCH (09:15)
[2018-03-28] MEDS: CALCIUM CARBONATE 500 MG TAB PO SCH (09:39)
[2018-03-28] MEDS: ENOXAPARIN 40 MG/0.4 ML SYR SC SCH (09:40)
--- NOTE | 2018-03-28 10:58 | SOAPPROG ---
SOAP Progress Note Assessment/Plan: Assessment/Plan: 77 Y F acute cholecystitis, cholelithiasis, choledocholithiasis , s/p lap perry POD#2. s/p ERCP POD#1. Discussed with medicine and appreciate GI input. Doing well from lap perry. Increased bili and LFT's thought to be 2/2 difficult ERCP. Defer to GI regarding diet. Following labs. No sign of pancreatitis on lab work. Patient feeling well. If does poorly or worsened labs may need biliary stent per GI. Will continue to follow. S: some lower abdominal pain. no back pain. no n/v. O: alert, nad +scleral icterus ctab rrr abd soft, appropriately TTP. inc cdi. 03/28/18 12:09 Objective: Vital Signs Temp Pulse Resp BP Pulse Ox 37.0 C 78 18 128/74 H 93 03/28/18 07:56 03/28/18 07:56 03/28/18 07:56 03/28/18 07:56 03/28/18 07:56 Laboratory Results 03/28/18 04:26 03/28/18 04:26 03/27/18 03/28/18 03/29/18 05:59 05:59 05:59 Intake Total 750 5586 Output Total 850 Balance 750 4736 PT 13.8 SEC (12.0-15.0) 03/25/18 14:50 INR 1.04 (0.83-1.16) 03/25/18 14:50 ICD10 Worksheet Patient Problems: Problems Problem Status Onset Gallstone pancreatitis Acute Gallstones Acute
[2018-03-28] MEDS ORDERED: SIMETHICONE 80 MG TAB CHEW PO PRN (10:59)
--- NOTE | 2018-03-28 11:25 | SOAPPROG ---
JOSE ELIAS Progress Note Assessment/Plan: Assessment: 1. Cholelithiasis with S/P ERCP, 9 mm papillotomy and sludge and stone removal yesterday; now with mild epigastric discomfort and elevated LFT albeit normal Lipase. Bump in LFT's likely secondary to difficult ERCP and papillary edema post cut, although CBD should drain well due to papillotomy in 24 hours and patient already feeling better as the day goes on. Plan: 1. Clears po and advance as tolerated. 2. Continued hospitalization additional 24 hours. 3. No need for ERCP today, if LFT's do not correct, will place biliary stent in 24-48 hours. 4. LFT's, Lipase and CBC in am. Roberto Carranza MD 03/28/18 11:28 Subjective: CC: CBD stone; S/P ERCP/papillotomy. Interval HPI: Patient had some epigastric abdominal discomfort earlier today which has since resolved. Initially dark urine which has also cleared. No nausea. Objective: Vital Signs Temp Pulse Resp BP Pulse Ox 37.0 C 78 18 128/74 H 93 03/28/18 07:56 03/28/18 07:56 03/28/18 07:56 03/28/18 07:56 03/28/18 07:56 Laboratory Results 03/28/18 04:26 03/28/18 04:26 03/27/18 03/28/18 03/29/18 05:59 05:59 05:59 Intake Total 750 5586 Output Total 850 Balance 750 4736 PT 13.8 SEC (12.0-15.0) 03/25/18 14:50 INR 1.04 (0.83-1.16) 03/25/18 14:50 Physical Exam - Physical Exam General Appearance: WD/WN, alert, no apparent distress Respiratory: chest non-tender, lungs clear, normal breath sounds Cardiac/Chest: regular rate, rhythm Abdomen: normal bowel sounds, non-tender, soft Skin: normal color, warm/dry Neuro/Psych: alert, normal mood/affect, oriented x 3 ICD10 Worksheet Patient Problems: Problems Problem Status Onset Gallstone pancreatitis Acute Gallstones Acute
--- NOTE | 2018-03-28 14:09 | ASMTCMCOM ---
CM Note CM Note Notes: Patient plan of care reviewed in rounds. 77 year old female s/p lap choley and ERCP. Normally independent mario alberto ADLS and lives with her . Ambulating in halls with staff. No needs identified CM available should needs arise. Plan: Likely to dc home independently when medically cleared. Date Signed: 03/28/2018 02:08 PM Electronically Signed By:Kenzie Montelongo RN
[2018-03-28] MEDS: NS 1,000 ML IV SCH (21:44)
[2018-03-28] MEDS: ATORVASTATIN CALCIUM 10 MG TAB PO SCH (21:58)
[2018-03-28] MEDS: LATANOPROST 0.005% 2.5 ML OPHT DROPS EACHEYE SCH (21:58)
[2018-03-29 03:56] VITALS: BP 112/62
[2018-03-29 05:03] LABS: PLATELET COUNT 181 10^3/uL (150-400)
[2018-03-29] MEDS: cefOXitin SODIUM 1 GM in NS 50 ML IV SCH (05:49)
--- NOTE | 2018-03-29 08:42 | SOAPPROG ---
JOSE ELIAS Progress Note Assessment/Plan: Assessment: 77 y/o F s/p lap perry and ercp for stone/sludge retrieval. LFTs, bili, lipase improved today. Ok to go from surgery standpoint. S: Feeling much better today. Had one bout of diarrhea yesterday. Tolerating a regular diet. Pain controlled. O: Alert Afebrile RRR No increased WOB Abdomen: soft, appropriately ttp, normoactive bowel sounds, incisions cdi. 03/29/18 08:37 Objective: Vital Signs Temp Pulse Resp BP Pulse Ox 37.0 C 73 144 H 112/62 86 L 03/29/18 07:38 03/29/18 07:38 03/29/18 07:38 03/29/18 03:55 03/29/18 07:43 Laboratory Results 03/29/18 04:24 03/29/18 04:24 03/28/18 03/29/18 03/30/18 05:59 05:59 05:59 Intake Total 5586 3007 Output Total 850 Balance 4736 3007 PT 13.8 SEC (12.0-15.0) 03/25/18 14:50 INR 1.04 (0.83-1.16) 03/25/18 14:50 ICD10 Worksheet Patient Problems: Problems Problem Status Onset Gallstone pancreatitis Acute Gallstones Acute
[2018-03-29] MEDS: ENOXAPARIN 40 MG/0.4 ML SYR SC SCH (10:30)
[2018-03-29] MEDS: CALCIUM CARBONATE 500 MG TAB PO SCH (10:38)
--- NOTE | 2018-03-29 10:43 | ASDISCHSUM ---
Discharge Information Plan Status:Home with No Needs Medically Cleared to Leave: Discharge Date: D/C Disposition:Home, Routine, Self-Care ADT D/C Disposition:Home, Routine, Self-Care Projected Discharge Date: Transportation at D/C:Family Discharge Delay Reason: Follow-Up Date: Discharge Slot: Final Diagnosis:Gallstones, gallstone pancreatitis Placement Information Patient Contact Information Contact Name:DONTA Relationship: Address:[address] City:[place] Alternate Phone: [facility]/Zip Code:[place] [address] Email: Financial Information Financial Class:Medicare Advantage Plans Primary Plan Desc:[facility] Primary Plan Number:[id number] Secondary Plan Desc: Secondary Plan Number: Assessment Information LACE LACE Length of stay for Answers: 2 days current admission Comorbidities - select Answers: Other Notes: "Gallbladder attacks" all that apply # of Emergency department Answers: 1-2 visits in the last 6 months Score: 4 Date Signed: 03/29/2018 10:42 AM Electronically Signed By:Ngoc Méndez [facility] Progress Note CM Note CM Note Notes: Reviewed chart. Pt presented to the Emergency Department with complaints of left-sided abdominal pain. History includes "gallbladder attacks," an appendectomy, and hysterectomy. Pt is and lives with her spouse independently. Pt to be admitted for further evaluation and treatment of gallstones/gallstone pancreatitis. Discharge needs remain unclear at this time. Anticipate pt will likely return home independently when medically stable. CM will continue to follow for any potential needs. Discharge Plan: To be determined, likely independent w/ family support when stable Date Signed: 03/25/2018 04:16 PM Electronically Signed By:Keisha Coe RN [facility] CM Progress Note CM Note CM Note Notes: Patient chart reviewed. Likely to have laparoscopic surgery for cholystectomy with Dr. King at some point. CM to follow for needs. Plan: May likely dc to home independently when medical cleared for discharge. Date Signed: 03/26/2018 10:06 AM Electronically Signed By:Kenzie Montelongo RN [facility] CM Progress Note CM Note CM Note Notes: Chart reviewed. Patient s/p lap cholecystectomy and ERCP. Normally independent, CM to follow for needs. Plan: Likely dc independent when medically cleared fpr discharge. Date Signed: 03/27/2018 04:04 PM Electronically Signed By:Kenzie Montelongo RN [facility] CM Progress Note CM Note CM Note Notes: Patient plan of care reviewed in rounds. 77 year old female s/p lap choley and ERCP. Normally independent mario alberto ADLS and lives with her . Ambulating in halls with staff. No needs identified CM available should needs arise. Plan: Likely to dc home independently when medically cleared. Date Signed: 03/28/2018 02:08 PM Electronically Signed By:Kenzie Montelongo RN Intervention Information
--- NOTE | 2018-03-29 11:23 | SOAPPROG ---
SOAP Progress Note Assessment/Plan: Assessment: 1. Cholecystitis/Cholelithiasis/choledocholithiasis with S/P Lap Jennifer, ERCP, papillotomy and CBD stone removal. No feeling fine with normalization of LFT' s. Bump in LFT's yesterday likely transient papillary edema after cut which has resolved. Plan: 1. D/C home today with F/U OV with Dr King in 1-2 weeks. Roberto Carranza MD 03/29/18 11:25 Subjective: CC; CBD stone. Interval HPI: Feels great! Tolerating diet. No abdominal pain. Objective: Vital Signs Temp Pulse Resp BP Pulse Ox 37.0 C 73 144 H 112/62 91 L 03/29/18 07:38 03/29/18 07:38 03/29/18 07:38 03/29/18 03:55 03/29/18 10:05 Laboratory Results 03/29/18 04:24 03/29/18 04:24 03/28/18 03/29/18 03/30/18 05:59 05:59 05:59 Intake Total 5586 3007 Output Total 850 Balance 4736 3007 PT 13.8 SEC (12.0-15.0) 03/25/18 14:50 INR 1.04 (0.83-1.16) 03/25/18 14:50 Laboratory Tests 03/26/18 03/27/18 03/28/18 04:16 04:06 04:26 Total Bilirubin 1.2 5.3 H AST 78 H 93 H ALT 73 H 105 H Alkaline Phosphatase 41 127 H Lipase 130 110 03/29/18 04:24 Total Bilirubin 1.1 AST ALT 77 H Alkaline Phosphatase 100 Lipase 50 Physical Exam - Physical Exam General Appearance: WD/WN, alert, no apparent distress Respiratory: lungs clear, normal breath sounds Cardiac/Chest: regular rate, rhythm Abdomen: normal bowel sounds, non-tender, soft Skin: normal color, warm/dry Neuro/Psych: alert, normal mood/affect, oriented x 3 ICD10 Worksheet Patient Problems: Problems Problem Status Onset Gallstone pancreatitis Acute Gallstones Acute
--- NOTE | 2018-03-29 16:01 | GDS ---
FINAL DIAGNOSES: 1. Acute gallstone pancreatitis. 2. Acute cholecystitis, status post cholecystectomy. 3. Hypertension. 4. History of transient ischemic attack. HOSPITAL COURSE: 77-year-old female, admitted with gallstone pancreatitis. Cholecystectomy revealed a necrotic gallbladder. There was also a filling defect during the intraoperative cholangiogram. E [employer] was quite complicated, however, ultimately sphincterotomy was performed with stone removal. Afte r the ERCP, she had a significant elevation in her LFTs with a bilirubin of 5. We opted to wait and see as she was not toxic appearing. Her LFTs have improved markedly the following day. She addition ally had some worsening abdominal pain, which is better on the day of discharge. She has tolerated a reasonable breakfast and has no problem hydrating herself. She will be discharged on an additional 5 days of Augmentin. She will have followup with Dr. King and Dr. Carranza as needed. I have dis cussed all the above with her. I recommend that she restart her aspirin 2 days after discharge. BILLING: I spent more than 30 minutes on the day of discharge coordinating care. /[id number]/MODL
== END 2018-03-29 11:42 | disposition home or self-care (01) | DRG 417 ==
LOC: F1N 16:30 → OBSVTOIN 03-26 14:51
PROVIDERS: ADMIT Internal Medicine; ATTEND Internal Medicine
PROC: 0FT44ZZ Resection of Gallbladder, Percutaneous Endoscopic Approach (ICD-10-PCS; principal; 2018-03-26 13:45)
PROC: 0FC98ZZ Extirpation of Matter from Common Bile Duct, Via Natural or Artificial Opening Endoscopic (ICD-10-PCS; 2018-03-27)
DX: K80.42 Calculus of bile duct with acute cholecystitis without obstruction (principal); K85.11 Biliary acute pancreatitis with uninfected necrosis; E86.9 Volume depletion, unspecified; I10 Essential (primary) hypertension; E78.5 Hyperlipidemia, unspecified; Z86.73 Personal history of transient ischemic attack (TIA), and cerebral infarction without residual deficits
CPT/HCPCS: 82435-PO; 82565-PO; 82947-PO; 84132-PO; 84295-PO; 84520-PO; 85014-PO; 97116-GP; 97161-GP; 97165-GO; 97530-GP; 97535-GO; G0378; G8978-GP-CJ; G8979-GP-CI; G8987-GO-CI; G8988-GO-CH; G8989-GO-CI; J0694; J1610; J1650; J2250; J2405; J2704; J2710; J3010; Q9961

== ENCOUNTER → 2018-05-22 | Outpatient (CLI) | payer OTHER | LOC: FIMAGING 08:58 | PROVIDERS: ATTEND Family Medicine | DX: Z13.820 Encounter for screening for osteoporosis (principal); M81.0 Age-related osteoporosis without current pathological fracture; K83.9 Disease of biliary tract, unspecified; E28.39 Other primary ovarian failure; Z78.0 Asymptomatic menopausal state ==

== ENCOUNTER → 2018-12-14 | Outpatient (CLI) | payer OTHER | LOC: FIMAGING 07:53 ==